=== PATIENT | female | born 1960 | race Caucasian/White ===

== ENCOUNTER → 2016-02-22 | Outpatient (CLI) | payer BC ==
[~2016-02-22] VITALS: Ht 167.6 cm; Wt 72.6 kg
[~2016-02-22] MED LIST: LISI-556 PO; RANI150T15 PO
--- OUTSIDE RECORDS SUMMARY | 2016-02-22 09:51 | XMS REPORT ---
Author Author [facility] Organization [facility] Address [address], [place] [id number] Phone [phone] Summary purpose TRANSITION OF CARE AUTO GENERATION Chief Complaint and Reason for Visit No authorized Reason for Visit (Admitting Diagnosis) is available for this visit. Problem list No authorized problems tracked for continuity of care are available for this visit. Encounters No authorized problems tracked for encounter diagnoses are available for this visit. Medications No home medications recorded for this patient visit Allergies, adverse reactions, alerts No allergy information is available for this patient. Immunizations No immunizations recorded for this patient visit Relevant diagnostic tests and/or laboratory data No authorized results are available for this patient visit History of procedures No procedures recorded for this patient visit. Functional status No functional or cognitive status observations are available for this visit. Vital signs No authorized vital signs are available for this visit. Social history No Social History or smoking status observations were recorded for this visit. ( Unknown if ever smoked.) Treatment Plan No treatment plan text is available for this visit. Hospital discharge instructions No discharge instruction text is available for this visit.
--- NOTE | 2016-02-22 10:07 | Progress Note-Pre Operative ---
Pre-Operative Progress Note H&P Reviewed The H&P was reviewed, patient examined and no changes noted. Date H&P Reviewed: Feb 22, 2016 Time H&P Reviewed: 10:00 Pre-Operative Diagnosis: Right Thyroid NOdule LORENA NICOLE MD Feb 22, 2016 10:07
--- NOTE | 2016-02-22 10:08 | Progress Note-Post Operative ---
Post-Operative Progess Note Pre-Operative Diagnosis Right Thyroid NOdule Post-Operative Diagnosis same Post-Op Procedure Note Date of Procedure: Feb 22, 2016 Name of Procedure: US Guided FNA of Right Thyroid Nodule Anesthesia Type Local Specimen(s) collected slides and cytology to pathology-right thyroid nodule LORENA NICOLE MD Feb 22, 2016 10:07
--- NOTE | 2016-02-22 11:04 | Diagnostic Imaging Report ---
EXAMINATION: Dedicated thyroid ultrasound performed with ultrasound guidance provided for FNA performed by Dr. Singh. Indication: Thyroid nodule FINDINGS: Ultrasound images demonstrate a right solid thyroid nodule. IMPRESSION: Ultrasound guidance provided for right thyroid nodule FNA. Dictated by: Dictated on workstation # [id number]
== END ==
LOC: RAD 09:47
PROVIDERS: ATTEND Nurse Practitioner Family
DX: E04.1 Nontoxic single thyroid nodule (principal)
CPT/HCPCS: 76942

== ENCOUNTER 2016-04-09 11:33 | Outpatient (CLI) | payer BC ==
[~2016-04-09] VITALS: Ht 167.6 cm; Wt 75.1 kg
[2016-04-09 11:43] VITALS: BP 155/89
[2016-04-09] MEDS ORDERED: LISI-556 PO (11:47)
[2016-04-09] MEDS ORDERED: RANI150T15 PO (11:47)
[2016-04-09 12:07] LABS: BASOPHILS % (AUTO) 0 % (0-10); EOSINOPHILS # (AUTO) 0.1 10^3/uL (0.0-0.3); EOSINOPHILS % (AUTO) 1 % (0-10); LYMPHOCYTES # (AUTO) 0.9 X 10^3 (1.0-4.0); LYMPHOCYTES % (AUTO) 20 % (12-44); MEAN CORPUSCULAR HEMOGLOBIN 29 PG (25-34); MEAN CORPUSCULAR HGB CONC 35 G/DL (32-36); MEAN CORPUSCULAR VOLUME 85 FL (80-99); MONOCYTES # (AUTO) 0.5 X 10^3 (0.0-1.0); MONOCYTES % (AUTO) 10 % (0-12); NEUTROPHILS # (AUTO) 3.3 X 10^3 (1.8-7.8); NEUTROPHILS % (AUTO) 69 % (42-75); PLATELET COUNT 180 10^3/uL (130-400); RED CELL DISTRIBUTION WIDTH 12.9 % (10.0-14.5); WHITE BLOOD COUNT 4.8 10^3/uL (4.3-11.0)
[2016-04-09 12:30] LABS: ANION GAP 9 MMOL/L (5-14); BLOOD UREA NITROGEN 11 MG/DL (7-18); BUN/CREATININE RATIO 14; CALCIUM 9.4 MG/DL (8.5-10.1); CARBON DIOXIDE 26 MMOL/L (21-32); CHLORIDE 107 MMOL/L (98-107); GFR ESTIMATED > 60; GLUCOSE 94 MG/DL (70-105); POTASSIUM 4.1 MMOL/L (3.6-5.0); SODIUM 142 MMOL/L (135-145)
== END 2016-04-09 12:00 | disposition home or self-care (01) ==
LOC: PREOP 11:33
PROVIDERS: ATTEND Otolaryngology Otolaryngology/Facial Plastic Surgery
DX: Z01.812 Encounter for preprocedural laboratory examination (principal); Z11.2 Encounter for screening for other bacterial diseases; E04.1 Nontoxic single thyroid nodule
CPT/HCPCS: 36415; 80048; 85025; 87081; 93005

== ENCOUNTER 2016-04-12 08:11 | Day surgery (SDC) | payer BC ==
[~2016-04-12] VITALS: Ht 167.6 cm; Wt 75.1 kg
[2016-04-12] MEDS ORDERED: fentaNYL INJECTION 100 MCG/2 ML AMP ONE ×2 (09:08→09:45)
[2016-04-12] MEDS ORDERED: MIDAZOLAM 2 MG/2 ML (VERSED) VIAL ONE (09:08)
[2016-04-12] MEDS ORDERED: LACTATED RINGERS 1,000 ML IV ONE ×2 (09:09→10:06)
[2016-04-12] MEDS ORDERED: ROCURONIUM 50 MG/5 ML (ZEMURON) VIAL IV ONE (09:09)
[2016-04-12] MEDS ORDERED: ONDANSETRON 4 MG/2 ML (SDV) Z0FRAN ONE (09:09)
[2016-04-12] MEDS ORDERED: proPOfol 200 MG/20 ML (DIPRIVAN) VIAL IV ONE (09:09)
[2016-04-12] MEDS ORDERED: LACTATED RINGERS 1,000 ML IV PRN (09:17)
[2016-04-12] MEDS ORDERED: MUPIROCIN 2% OINT 22 GM (BACTROBAN) TUBE ONE (09:19)
[2016-04-12] MEDS ORDERED: LIDOCAINE/EPI 1%-1:100,000 (XYLOCAINE) 20ML ONE (09:19)
--- NOTE | 2016-04-12 09:19 | Progress Note-Pre Operative ---
Pre-Operative Progress Note H&P Reviewed The H&P was reviewed, patient examined and no changes noted. Date H&P Reviewed: Apr 12, 2016 Time H&P Reviewed: 09:00 Pre-Operative Diagnosis: Rigth Thyroid Nodule LORENA NICOLE MD Apr 12, 2016 9:19 am
[2016-04-12 09:52] VITALS: BP 137/90
[2016-04-12] MEDS ORDERED: ESMOLOL 100 MG/10 ML (BREVIBLOC) VIAL ONE (10:06)
[2016-04-12] MEDS ORDERED: SUCCINYLCHOLINE INJ 100 MG/5 ML SYR ONE (10:06)
[2016-04-12] MEDS ORDERED: DEXAMETHASONE PF 10 MG/ML (DECADRON) VIAL ONE (10:07)
[2016-04-12] MEDS ORDERED: ONDANSETRON 4 MG/2 ML (SDV) Z0FRAN IVP PRN (10:45)
[2016-04-12] MEDS ORDERED: morphine INJ 10 MG/ML 1ML (SYR OR VIAL) IVP PRN (10:45)
[2016-04-12] MEDS ORDERED: MEPERIDINE (DEMEROL) INJ 50 MG/ML IVP PRN (10:45)
[2016-04-12] MEDS ORDERED: SEVOFLURANE (ULTANE) 15 ML INHAL SOLN ONE ×2 (11:11→11:15)
--- NOTE | 2016-04-12 11:12 | Progress Note-Post Operative ---
Post-Operative Progess Note Pre-Operative Diagnosis Rigth Thyroid Nodule Post-Operative Diagnosis same Post-Op Procedure Note Date of Procedure: Apr 12, 2016 Name of Procedure: Right Thyroid Lobectomy Anesthesia Type get Estimated blood loss (mL): minimal Specimen(s) collected Right Thyroid Lobe Frozen No malignancy seen LORENA NICOLE MD Apr 12, 2016 11:12 am
[2016-04-12] MEDS ORDERED: MEPERIDINE (DEMEROL) INJ 50 MG/ML IM PRN (11:15)
[2016-04-12] MEDS ORDERED: ONDANSETRON 4 MG/2 ML (SDV) Z0FRAN IV PRN (11:15)
[2016-04-12] MEDS ORDERED: HYDROcodone/APAP 5 MG/325 MG (LORTAB) TAB PO PRN (11:15)
[2016-04-12] MEDS ORDERED: ACETAMINOPHEN 500 MG TAB (TYLENOL) PO PRN (11:15)
[2016-04-12] MEDS ORDERED: morphine INJ 10 MG/ML 1ML (SYR OR VIAL) ONE (11:16)
[2016-04-12] MEDS: D5 1/2 NS W/KCL 20 MEQ/L 1,000 ML IV SCH (12:35)
[2016-04-12 14:24] VITALS: BP 146/85
[2016-04-12] MEDS ORDERED: FLU TRIvalent (5 YOA+) 2016-17 (AFLURIA) 0.5 ML IM ONE (15:00)
[2016-04-12 15:55] VITALS: BP 157/77
[2016-04-12 20:30] VITALS: BP 137/84
[2016-04-13] VITALS: BP 114/71
[2016-04-13] MEDS: D5 1/2 NS W/KCL 20 MEQ/L 1,000 ML IV SCH (03:48)
[2016-04-13 04:00] VITALS: BP 108/63
--- NOTE | 2016-04-13 06:21 | Progress Note-Standard ---
Standard Progress Note Progress Notes/Assess & Plan Progress/Assessment & Plan ENT-Francisco Doing Well Yehuda Diet, Voice normal Minimal discomfort Drain D/c'ed-minimal Drainage CAlcium-8.8 this am Will Discharge after breakfast RTC-1 week Discharge prescriptions in her folder Final Diagnosis Right Thyroid Lobectomy LORENA NICOLE MD Apr 13, 2016 6:21 am
== END 2016-04-13 08:30 | disposition home or self-care (01) ==
LOC: SDC 08:11 → 4TH 12:46 → SDC 04-13 08:30
PROVIDERS: ATTEND Otolaryngology Otolaryngology/Facial Plastic Surgery
DX: D34 Benign neoplasm of thyroid gland (principal)
CPT/HCPCS: 36415; 82310; 88307; 88331